=== PATIENT | female | born 1980 | race Caucasian/White ===

== ENCOUNTER 2019-06-28 07:30 | Inpatient (IN) | payer BC ==
[~2019-06-28] VITALS: Ht 160 cm; Wt 113.1 kg
[2019-06-28] MEDS ORDERED: LR 1,000 ML IV ONE (16:16)
[2019-06-28] MEDS ORDERED: CEFAZOLIN 2 GM IVPB PREMIX 50 ML IV ONE (16:30)
[2019-06-28 16:52] LABS: BASOPHILS % (AUTO) 0.1 % (0.0-2.0); EOSINOPHILS % (AUTO) 0.4 % (0.0-4.0); HEMATOCRIT 39.6 % (36-48); HEMOGLOBIN 13.3 g/dL (12.0-16.0); LYMPHOCYTES # (AUTO) 1.3 K/uL (1.0-5.5); LYMPHOCYTES % (AUTO) 13.9 % (20.5-51.5); MEAN CORPUSCULAR HEMOGLOBIN 29 pg (27-31); MEAN CORPUSCULAR HGB CONC 34 % (32-36); MEAN CORPUSCULAR VOLUME 88 fL (79.0-98.0); MONOCYTES # (AUTO) 0.7 K/uL (0.0-1.0); MONOCYTES % (AUTO) 7.7 % (1.7-9.3); NEUTROPHILS # (AUTO) 7.5 K/uL (1.8-7.7); NEUTROPHILS % (AUTO) 77.9 % (40.0-70.0); PLATELET COUNT (AUTO) 175 K/uL (130-430); RED BLOOD CELL COUNT(AUTO) 4.52 MIL/uL (4.2-6.2); RED CELL DISTRIBUTION WIDTH 14.4 % (9.0-15.0); WHITE BLOOD COUNT (AUTO) 9.6 K/uL (4.8-10.8)
[2019-06-28 16:53] LABS: BILIRUBIN,URINE 1+ (NEGATIVE); BLOOD, URINE 2+ (NEGATIVE); CLARITY/URINE CLOUDY (CLEAR); COLOR,URINE YELLOW (YELLOW); GLUCOSE,URINE NEGATIVE (NEGATIVE); KETONES,URINE 1+ (NEGATIVE); LEUKOCYTE ESTERASE ,URINE 3+ (NEGATIVE); NITRITE, URINE NEGATIVE (NEGATIVE); PH,URINE 6.5 (5.0-8.0); PROTEIN URINE 1+ (NEGATIVE)
[2019-06-28 17:57] LABS: BACTERIA,URINE MANY /HPF (None Seen); MUCUS,URINE 2+ /LPF (None Seen); WBC,URINE 20-50 /HPF (0-3)
[2019-06-28 18:13] VITALS: BP_SYST 128
[2019-06-28] MEDS ORDERED: OXYTOCIN 10 UNIT/ML VIAL ONE ×2 (18:57→19:22)
[2019-06-28] MEDS ORDERED: TEMAZEPAM 15 MG CAPSULE PO PRN (19:15)
[2019-06-28] MEDS ORDERED: MEASLES,MUMPS&RUBELLA VACC/PF 12500 UNIT/0.5 ML VIAL SUBQ PRN (19:15)
[2019-06-28] MEDS ORDERED: SENNOSIDES/DOCUSATE SODIUM 1 TAB TABLET(SENOKOT-S) PO PRN (19:15)
[2019-06-28] MEDS ORDERED: BISACODYL 10 MG/SUPPOSITORY RC PRN (19:15)
[2019-06-28] MEDS ORDERED: LR 1,000 ML IV SCH (19:15)
[2019-06-28] MEDS ORDERED: HYDROcodone/ACETAMIN 5-325 MG TAB (NORCO/ VICODIN) PO PRN (19:15)
[2019-06-28] MEDS ORDERED: ANUSOL 1 EA SUPP.RECT (PREPARATION H) RC PRN (19:15)
[2019-06-28] MEDS ORDERED: DIPH-TET-PERTUS Vaccine 0.5 ML VIAL (ADACEL) I.M. PRN (19:15)
[2019-06-28] MEDS ORDERED: RHO(D) IMMUNE GLOBULIN/MALTOSE 1500 UNITS/1.3 ML (WINHRO) IM PRN (19:15)
[2019-06-28] MEDS ORDERED: LANOLIN 7 GM OINT. TP PRN (19:15)
[2019-06-28] MEDS ORDERED: OXYCODONE/ACETAMINOPHEN *10*mg/325 mg TABLET PO PRN (19:15)
[2019-06-28] MEDS ORDERED: BUPIVACAINE /PF 0.75% 10 ML VIAL INJ ONE (19:22)
[2019-06-28] MEDS ORDERED: NS IRRIG SOLN 1000 ML IR ONE (19:22)
[2019-06-28] MEDS ORDERED: MORPHINE SULFATE 10MG/10ML PF AMP ONE (19:22)
[2019-06-28] MEDS ORDERED: DEXAMETHASONE SOD PHOSPHATE 4 MG/ML VIAL ONE (19:22)
[2019-06-28] MEDS ORDERED: LR 1,000 ML IV.SOLN IV ONE (19:22)
[2019-06-28] MEDS ORDERED: ePHEDrine sulfate 50 MG/ML VIAL ONE (19:22)
[2019-06-28 19:41] VITALS: BP_SYST 137
[2019-06-28] MEDS ORDERED: FLUoxetine HCL 20 MG CAPSULE (PROzac) PO SCH (21:30)
[2019-06-28] MEDS ORDERED: ONDANSETRON HCL 4 MG/2 ML VIAL IVP PRN (23:00)
[2019-06-28] MEDS ORDERED: MEPERIDINE HCL/PF 25 MG/ML DISP.SYRIN IM PRN (23:00)
[2019-06-28] MEDS ORDERED: KETOROLAC TROMETHAMINE 60 MG/2 ML VIAL IM ONE (23:00)
[2019-06-28] MEDS ORDERED: NALOXONE HCL 2 MG/2 ML SYR IVP ONE (23:00)
[2019-06-28] MEDS: DIPHENHYDRAMINE INJ 50 MG/ML VIAL IVP PRN (23:05)
[2019-06-28] MEDS: KETOROLAC TROMETHAMINE 30 MG VIAL IVP SCH (23:35)
[2019-06-28] MEDS: CEFAZOLIN 1 GM IVPB PREMIX 50 ML IV SCH (23:36)
[2019-06-29] MEDS: OXYTOCIN/0.9 % SODIUM CHLORIDE 1,000 ML IV SCH ×2 (02:37→10:59)
[2019-06-29] MEDS: KETOROLAC TROMETHAMINE 30 MG VIAL IVP SCH ×3 (06:17→18:25)
[2019-06-29] MEDS: CEFAZOLIN 1 GM IVPB PREMIX 50 ML IV SCH ×2 (06:17→12:02)
[2019-06-29] MEDS: DIPHENHYDRAMINE INJ 50 MG/ML VIAL IVP PRN (06:24)
[2019-06-29 06:32] LABS: BASOPHILS % (AUTO) 0.1 % (0.0-2.0); HEMATOCRIT 31.8 % (36-48); HEMOGLOBIN 10.9 g/dL (12.0-16.0); LYMPHOCYTES # (AUTO) 0.8 K/uL (1.0-5.5); LYMPHOCYTES % (AUTO) 7.9 % (20.5-51.5); MEAN CORPUSCULAR HEMOGLOBIN 30 pg (27-31); MEAN CORPUSCULAR HGB CONC 34 % (32-36); MONOCYTES # (AUTO) 0.7 K/uL (0.0-1.0); MONOCYTES % (AUTO) 6.9 % (1.7-9.3); NEUTROPHILS # (AUTO) 9.1 K/uL (1.8-7.7); NEUTROPHILS % (AUTO) 85.1 % (40.0-70.0); PLATELET COUNT (AUTO) 152 K/uL (130-430); RED BLOOD CELL COUNT(AUTO) 3.69 MIL/uL (4.2-6.2); RED CELL DISTRIBUTION WIDTH 14.5 % (9.0-15.0); WHITE BLOOD COUNT (AUTO) 10.7 K/uL (4.8-10.8)
[2019-06-29 07:08] LABS: MEAN CORPUSCULAR VOLUME 88 fL (79.0-98.0)
[2019-06-29] MEDS: SIMETHICONE 80 MG TAB.CHEW PO PRN ×2 (12:01→18:24)
[2019-06-29] MEDS: DOCUSATE SODIUM 100 MG CAPSULE PO PRN (18:23)
[2019-06-30] MEDS: IBUPROFEN 600 MG TABLET PO SCH ×4 (00:05→18:02)
[2019-06-30] MEDS: DOCUSATE SODIUM 100 MG CAPSULE PO PRN ×2 (00:05→21:37)
--- NOTE | 2019-06-30 14:13 | NUR ---
Dietitian Recommendations * Recommend continuing regular diet Please see nutrition assessment for details. SS, AMX
[2019-06-30] MEDS: SIMETHICONE 80 MG TAB.CHEW PO PRN (21:36)
[2019-06-30] MEDS: OXYCODONE/ACETAMINOPHEN 5-325 TABLET PO PRN (21:37)
[2019-07-01] MEDS: IBUPROFEN 600 MG TABLET PO SCH ×3 (00:22→11:55)
[2019-07-01] MEDS: OXYCODONE/ACETAMINOPHEN 5-325 TABLET PO PRN ×2 (03:28→07:20)
== END 2019-07-01 14:30 | disposition home or self-care (01) | DRG 788 ==
LOC: SPU 15:48
PROVIDERS: ADMIT Specialist; ATTEND Specialist
PROC: 10D00Z1 Extraction of Products of Conception, Low, Open Approach (ICD-10-PCS; principal; 2019-06-28 18:00)
DX: O24.424 Gestational diabetes mellitus in childbirth, insulin controlled (principal); O36.63X0 Maternal care for excessive fetal growth, third trimester, not applicable or unspecified; O99.344 Other mental disorders complicating childbirth; Z37.0 Single live birth; Z3A.38 38 weeks gestation of pregnancy
CPT/HCPCS: 36415; 81000-TC; 82947-TC; 85025; 86886; 86900; 86901; 87086; 94760; J0690; J1100; J1200; J1885; J2274; J2310; J2590; J3490; J7120